=== PATIENT | female | born 1950 | race Caucasian/White ===

== ENCOUNTER → 2023-02-19 | Outpatient (CLI) | payer MEDICARE, BC ==
[~2023-02-19] MED LIST: ATOR40TA PO; CHRO400T10 PO; CIPR-225 PO; CLOP75TA28 PO; FAMO-119 PO; HYDR-3455 PO; LISI5TAB20 PO; METF-397 PO; METF-399 PO; METF-865 PO; METR500T PO; MTP25TSR PO; MULT1CAP27 PO; OMEP-10 PO; PANT40TA2 PO; VALA10007 PO; VITA1TAB17 PO; no home medications
== END ==
LOC: CARD 08:14
PROVIDERS: ATTEND Internal Medicine Cardiovascular Disease
DX: R00.2 Palpitations (principal)